=== PATIENT | female | born 1995 | race Caucasian/White ===

== ENCOUNTER 2017-10-24 06:00 | Inpatient (IN) ==
[2017-10-24] MEDS ORDERED: D5% in Lactated Ringers 1,000 ML IVC SCH (06:45)
[2017-10-24] MEDS ORDERED: Famotidine 20 MG/2 ML VIAL IVP PRN (06:45)
[2017-10-24] MEDS ORDERED: Metoclopramide 10 MG/2 ML VIAL IVP PRN (06:45)
[2017-10-24] MEDS ORDERED: miSOPROStol 25 MCG TABLET VG PRN (06:45)
[2017-10-24] MEDS ORDERED: Naloxone 0.4 MG/ML INJ IVP PRN (06:45)
[2017-10-24] MEDS ORDERED: *HR* Nalbuphine 10 MG/ML AMPUL IVP PRN (06:45)
[2017-10-24] MEDS ORDERED: Lidocaine 1% 20 ML MDV INFILT PRN (06:45)
[2017-10-24 07:05] LABS: Basophils % 0.3 %; Eosinophils # 0.2 K/mcL (0.0-0.6); Eosinophils % 1.8 %; Hemoglobin 14.2 g/dL (11.5-15.4); Immature Granulocytes % 0.3 % (0-4); Immature Platelets 6.9 % (1.1-6.1); Lymphocytes # 1.9 K/mcL (0.6-4.6); Lymphocytes % 15.5 %; Mean Corpuscular HGB Conc 33.8 g/dL (31.6-35.5); Mean Corpuscular Hemoglobin 30.5 pg (28.0-33.3); Mean Corpuscular Volume 90.1 fL (83.0-100.0); Monocytes # 0.7 K/mcL (0.0-1.3); Monocytes % 5.5 %; Neutrophils # 9.2 K/mcL (1.6-8.9); Platelet Count 228 K/mcL (140-400); Red Blood Count 4.66 M/mcL (3.82-4.97); Red Cell Distribution Width 13.6 % (11.5-14.5); Segmented Neutrophils % 76.6 %
[2017-10-24 07:19] LABS: Amphetamine Screen,Urine Negative ng/mL (Cutoff=1000); Barbiturate Screen,Urine Negative ng/mL (Cutoff=200); Benzodiazepines Screen,Urine Negative ng/mL (Cutoff=200); Cannabinoid Screen,Urine Negative ng/mL (Cutoff = 50); Cocaine Screen,Urine Negative ng/mL (Cutoff= 300); Opiate Screen,Urine Negative ng/mL (Cutoff=300); Phencyclidine Screen,Urine Negative ng/mL (Cutoff=25)
[2017-10-24] MEDS: Ringers Solution, Lactated 1,000 ML IVC SCH (07:58)
[2017-10-24] MEDS ORDERED: Oxytocin 20 units/ LR 1000 mL 20 UNIT/1,000 ML BAG IVC SCH (09:30)
--- NOTE | 2017-10-24 14:24 | OB/GYN History & Physical ---
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 History of Present Illness Chief complaint: elective IOL HPI: Ms. Dorsey is a 21 year old female with an estimated date of of 10/26/17 at 39 weeks 5 days gestation dated by LMP. She presents for scheduled induction of labor. She denies contractions, follow-up, vaginal bleeding and reports positive movement. course has been uncomplicated. She received care from Dr. Forbes. records are available in her chart and have been reviewed. Labs: O+ GBS- Hep B- HIV- T.Palladium- Rubella immune Varicella immune Past Med Surg Social Fam HX - Past Medical History Medical history: no medical history Psychiatric history: anxiety - Past Surgical History Surgical History: no surgical history - Social History Smoking Status: Never smoker Smokeless Tobacco Status: No Alcohol use: none Drug use: none - Family History Mother Adopted: No Family Member Ethnicity: Non- Living Status: Still Living Hx Family Cardiac Disorders: No Hx Family Respiratory Disorders: No Hx Family Cancer: No Hx Family GI Disorders: No Hx Family Genitourinary Disorders: No Hx Family Endocrine Disorder: No Hx Family Musculoskeletal Disorders: No Hx Family Neuromuscular Disorders: No Hx Family Neurologic Disorders: No Hx Family HEENT Disorders: No Hx Family Autoimmune Disorders: No Hx Family Reproductive Disorders: No Hx Family Psychosocial Disorders: No Hx Family Medical Disorders: No Obstetrical History - Pregnancies : 2 Para: 0 Term: 0 : 0 Ab's: 1 (2017 [facility]) Livin Medications and Allergies Buspirone HCl [Buspar] 5 mg PO PRN PRN 10/24/17 [History] Multivit with Iron-Minerals [Flintstones Complete] 1 tab PO DAILY 10/24/17 [ History] 3 Allergy/AdvReac Type Severity Reaction Status Date / Time No Known Allergies Allergy Verified 10/24/17 06:41 Review of System OB All systems PM: reviewed and no additional remarkable complaints except as stated Exam - Constitutional Constitutional: well developed, well nourished, no acute distress, average body habitus - HEENT HEENT: Normocephaly, Mucus Membranes Moist - Neck Neck exam: full ROM - Lungs Respiratory exam: CTAB - Cardiovascular Cardiovascular exam: RRR, +S1, +S2 - Breasts Breast: bilateral: normal - Abdomen Abdomen: Present: bowel sounds normal, gravid, non tender - Extremities Extremities exam: full ROM, normal inspection - Vulva Vulva: bilateral: normal - Vagina Vagina: Present: normal moisture - Cervix Dilation: 3 Effacement: 50 Station: -2 - Uterus Uterus exam: Present: normal size, normal contour - Anus/Rectum Anus/Rectum: Present: normal perianal skin Results Result Diagrams: 10/24/17 06:45 Abnormal lab results WBC 12.1 K/mcL (4.3-11.1) H 10/24/17 06:45 Neutrophils # 9.2 K/mcL (1.6-8.9) H 10/24/17 06:45 Immature Plt Fraction 6.9 % (1.1-6.1) H 10/24/17 06:45 All other labs normal. - VTE Reasons for not Prescribing Prophylaxis: Treatment not Indicated - Low risk for VTE
--- NOTE | 2017-10-24 19:27 | OB Labor Progress Note ---
Date of Encounter: 10/24/17 Time of Encounter: 17:24 Labor Progress Note - Subjective Subjective: Pt reports slight discomfort with contractions - Cervix Cervix: 3/50/-2 - Heart Tones Heart Tones: Baseline 120 Moderate variability Accelerations present 15x15 No decelerations FHR Category I - [place]: Contractions every 3 minutes - Interventions Interventions: Pitocin turned down to 6mu Cabrera bulb placed - Plan Plan: Continue expectant management Apply tension to cabrera bulb hourly Anticipate
--- NOTE | 2017-10-24 19:33 | OB Labor Progress Note ---
Date of Encounter: 10/24/17 Time of Encounter: 19:29 Labor Progress Note - Subjective Subjective: Pt uncomfortable - requesting epidural - Cervix Cervix: 6/50/-2 - Heart Tones Heart Tones: Baseline 120 Moderate variability Accelerations present 15x15 No decelerations FHR Category I - [place]: Contractions every 2-3 - Interventions Interventions: Crenshaw bulb out SVE Epidural - Plan Plan: Continue expectant management Patient may have epidural Anticipate
[2017-10-24] MEDS ORDERED: Epidural Premix (fent/bupiv) 110 ML EP SCH (19:45)
[2017-10-24] MEDS ORDERED: EPHEDrine 50 MG/ML VIAL ONE (20:17)
--- NOTE | 2017-10-24 20:22 | Anesthesia Evaluation PreOp ---
Date of Encounter: 10/24/17 Time of Encounter: 20:00 - Past History Planned Operation: bhupinder Cardiac History: Denies any Significant Hx Pulmonary History: Denies Any Significant HX BRIDGE ENGINEER History: Denies Any Significant HX Other Medical History: Denies Any Significant HX Anesthesia History: No Prior Anesthetic Complications : Yes Test: Positive Alcohol Use: none Drug use: none Medications and Allergies Buspirone HCl [Buspar] 5 mg PO PRN PRN 10/24/17 [History] Multivit with Iron-Minerals [Flintstones Complete] 1 tab PO DAILY 10/24/17 [ History] 3 Allergy/AdvReac Type Severity Reaction Status Date / Time No Known Allergies Allergy Verified 10/24/17 06:41 - Meds/Allergy Pre-op Review Medications Reviewed: Yes Allergies Reviewed: Yes Beta Blockers on Current Med List: No Anesthesia Results - Labs 10/24/17 06:45 Anesthesia Exam Height: 64 Weight: 200 NPO (# of Hours): mn Pain Scale: 3 - HEENT Pupil (Motor): Pupils equal Mallampati: II Teeth: Normal Oral Opening: Greater than 3 - BRIDGE ENGINEER LOC: Oriented BRIDGE ENGINEER Motor: Normal RUE, Normal LUE, Normal RLE, Normal LLE, Normal Face BRIDGE ENGINEER Sensory: Normal: RUE, LUE, RLE, LLE, Face - Cardiac Rhythm: Regular Murmur: None JVD: No Carotid Bruit: No - Pulmonary Breath Sounds: bilateral Clear Respiratory Effort: Symmetrical Anesthesia Assess/Plan ASA Score: 1 Modified [place] Scale for Level of Consciousness: Cooperative, oriented, and tranquil Anesthetic Plan: Regional Autologous Blood: No Monitoring Plan: Standard Monitors
--- NOTE | 2017-10-24 20:25 | Anesthesia Procedures ---
Date of Encounter: 10/24/17 Time of Encounter: 20:00
--- NOTE | 2017-10-24 21:02 | OB Labor Progress Note ---
Date of Encounter: 10/24/17 Time of Encounter: 20:59 Labor Progress Note - Subjective Subjective: Pt now comfortable with epidural. - Cervix Cervix: 6/70/-1 - Heart Tones Heart Tones: Baseline 140 Moderate variability Accelerations present 15x15 No decelerations FHR Category I - [place]: Contractions every 3+ minutes - Interventions Interventions: AROM - clear and small amount - Plan Plan: Continue expectant management Use peanut ball Anticipate
[2017-10-25] MEDS: Ringers Solution, Lactated 1,000 ML IVC SCH (01:23)
--- NOTE | 2017-10-25 01:27 | OB Labor Progress Note ---
Date of Encounter: 10/25/17 Time of Encounter: 01:25 Labor Progress Note - Subjective Subjective: Pt comfortable with epidural. - Cervix Cervix: 6-7/90/-1 - Heart Tones Heart Tones: Baseline 140 Moderate variability Accelerations present 15x15 Prolonged decel x 1 for 4 minutes FHR [place] II - [place]: Contractions every 2-4 minutes with IUPC - Interventions Interventions: SVE O2 applied via face mask Pitocin off Position changes FSE applied with patient consent - Plan Plan: Continue expectant management Dr. Donahue aware of prolonged deceleration and recovery Remove O2 as soon as FHR recovers Call anesthesia re: hypotension Anticipate Dr. Donahue aware of POC and agrees
[2017-10-25] MEDS ORDERED: *HR* Phenylephrine 10 MG/ML VIAL ONE (01:51)
[2017-10-25] MEDS ORDERED: Epidural Premix (fent/bupiv) 110 ML EP ONE ×2 (02:07→02:08)
[2017-10-25] MEDS ORDERED: Ondansetron 4 MG/2 ML VIAL ONE ×2 (02:13→04:38)
[2017-10-25] MEDS ORDERED: Ondansetron 4 MG/2 ML VIAL IVP PRN ×2 (02:13→05:43)
[2017-10-25] MEDS ORDERED: Lidocaine/EPI 1:200k 2% PF 20 ML VIAL ONE (03:47)
--- NOTE | 2017-10-25 03:49 | OB Labor Progress Note ---
Date of Encounter: 10/25/17 Time of Encounter: 03:47 Labor Progress Note - Subjective Subjective: Pt continues to be comfortable with epdiural. - Cervix Cervix: 6-7/100/-1 - Heart Tones Heart Tones: Baseline variable 120-150 Moderate variability Accelerations 15x15 Many prolonged decelerations and variable decelerations FHR Category II - [place]: Contractions every 2.5-3.5 minutes - Interventions Interventions: Interventions since 129: ephedrine for hypotension phenylephrine for hypotension LR bolus for hypotension Many position changes for FHR SVE Dr. Donahue notified of poor tracing coupled with seemingly intractable maternal hypotension. At bedside, decision was made to proceed with PLTCS. Pt agrees - Plan Plan: Stop induction Proceed to the OR for PLTCS Consents signed Pt and in agreement to proceed Dr. Donahue to assume full care.
[2017-10-25] MEDS ORDERED: *HR* FentaNYL (PF) 100 MCG/2 ML VIAL ONE (03:50)
[2017-10-25] MEDS ORDERED: CeFAZolin Premix DUPLEX 2,000 MG/50 ML BAG IVPB ONE (03:52)
[2017-10-25] MEDS ORDERED: Ringers Solution, Lactated 1,000 ML ONE (04:04)
[2017-10-25] MEDS ORDERED: Morphine Sulfate/PF 5mg/10mL Vial ONE (04:04)
[2017-10-25] MEDS ORDERED: *HR* Oxytocin 10 UNIT/ML VIAL IM ONE ×2 (04:05→04:58)
[2017-10-25] MEDS ORDERED: Ketorolac 30 MG/ML VIAL ONE (04:38)
[2017-10-25] MEDS ORDERED: Dexamethasone 4 MG/ML VIAL ONE (04:38)
--- NOTE | 2017-10-25 05:40 | OB/GYN Procedure Note ---
OB-CLINICAL INTERVIEWER: Procedure - Diagnosis Date of procedure: 10/25/17 Pre-op diagnosis: CAT 2 tracing, arrest of dilation Post-op diagnosis: same - Procedure Procedure: Primary Surgeon: Lexii Donahue Was there an assistant site manager present: Yes Messenger Floorperson: Petrona Madison Anesthesia Type: General Estimated blood loss (cc): 200 Fluids: crystalloid Procedure Complications: none Specimens collected: placenta Disposition: floor Findings: normal uterus, ovaries and tubes Narrative: Patient was brought to the operating room with satisfactory epidural anesthesia. The abdomen was prepped and draped in a sterile fashion. A Pfannenstiel incision was made and carried sharply down to the level of fascia. The fascia was incised transversely. The fascia was dissected away from the underlying rectus muscles. With sharp and blunt dissection, rectus muscles were divided in midline. The perineum was entered bluntly. The incision was carried vertically with scissors. Transverse incision was made across the bladder peritoneum. The bladder was dissected away from the underlying lower uterine segment. Bladder retractor was placed to protect the bladder. The lower uterine segment was entered sharply with a scalpel. Incision was manually extended. Clear amniotic fluid was encountered. The 's head was pulled up and delivered easily as were the shoulders and body. The mouth and oropharynx were suctioned. The cord was clamped and cut. The infant was passed off to the waiting nurse in satisfactory condition. APGARS 8/9. Placenta was extracted completely and found to be intact. Uterus was explored and found to be empty. Uterus was delivered through the abdominal incision and massaged vigorously. Intravenous Pitocin was administered. The margins of the uterine incision were closed primarily with a running locking stitch of 0 Vicryl with adequate hemostasis. Secondary running locking stitch was placed for extra strength to the wound. The uterus was returned to its proper anatomic position in the abdomen. The fascia was closed with a simple running stitch of 0 vicryl. The subcutaneous tisue was closed with 3-0 vicryl. The skin was closed with running subcuticular stitch of 4-0 vicryl. Uterus was expressed of its contents. Patient was brought to the recovery room in satisfactory condition.
[2017-10-25] MEDS ORDERED: Metoclopramide 10 MG/2 ML VIAL IVP PRN (05:43)
[2017-10-25] MEDS ORDERED: Simethicone 80 MG TAB.CHEW PO PRN (05:43)
[2017-10-25] MEDS ORDERED: Sennosides 8.6 MG TABLET PO PRN (05:43)
[2017-10-25] MEDS ORDERED: Oxytocin 20 units/ LR 1000 mL 20 UNIT/1,000 ML BAG IVC SCH (05:45)
[2017-10-25] MEDS ORDERED: Ringers Solution, Lactated 1,000 ML IVC SCH (05:45)
[2017-10-25] MEDS: Ibuprofen 600 MG TABLET PO PRN (21:22)
[2017-10-26] MEDS: *HR* OxyCODONE/APAP 5/325 TABLET PO PRN ×4 (00:09→22:53)
[2017-10-26 01:29] LABS: Basophils % 0.3 %; Eosinophils # 0.1 K/mcL (0.0-0.6); Eosinophils % 0.7 %; Hematocrit 33.2 % (35.3-44.9); Hemoglobin 10.8 g/dL (11.5-15.4); Immature Granulocytes % 0.3 % (0-4); Lymphocytes # 1.5 K/mcL (0.6-4.6); Lymphocytes % 12.1 %; Mean Corpuscular HGB Conc 32.5 g/dL (31.6-35.5); Mean Corpuscular Hemoglobin 29.9 pg (28.0-33.3); Mean Platelet Volume 11.1 fL (9.4-12.4); Monocytes # 0.7 K/mcL (0.0-1.3); Monocytes % 5.8 %; Neutrophils # 10.3 K/mcL (1.6-8.9); Platelet Count 144 K/mcL (140-400); Red Blood Count 3.61 M/mcL (3.82-4.97); Red Cell Distribution Width 14.2 % (11.5-14.5); Segmented Neutrophils % 80.8 %
[2017-10-26] MEDS: Ibuprofen 600 MG TABLET PO PRN ×3 (06:28→22:53)
--- NOTE | 2017-10-26 10:20 | OB/GYN Progress Note ---
Date of Encounter: 10/26/17 Time of Encounter: :18 - Assessment and Plan (1) Status post delivery Current Visit: Yes Status: Acute Pt meeting POD#1 milestones. Await flatus. Have pt ambulate in hallway today. Anticipate discharge home tomorrow. Subjective - Subjective Interval history: Pt reports she is not yet passing flatus. Patient reports: appetite normal, voiding normally, pain well controlled, ambulating normally : doing well Objective - Vital Signs Latest vital signs: Vital Signs Temp Pulse Pulse Resp BP Pulse Ox 10/26/17 07:36 98.0 F 98 12 103/64 97 10/26/17 06:17 97.9 F 100 16 99/66 98 10/26/17 00:30 100 10/26/17 00:12 98.5 F 100 16 99/65 95 10/25/17 21:28 96 10/25/17 21:08 99.1 F 96 16 99/64 97 10/25/17 16:22 98.5 F 102 14 96/56 96 10/25/17 10:45 98.4 F 78 16 116/77 94 Intake and Output 10/25/17 10/26/17 10/26/17 23:59 07:59 15:59 Intake Total 250 / 250 Output Total 2099 1150 / 1150 610 / 610 Balance -2100 / -2100 -900 / -900 -610 / -610 Intake: Oral 250 / 250 Output: Urine 610 / 610 Catheter 2099 1150 / 1150 Other: Weight 101.831 kg Patient Weight 10/26/17 23:59 Weight 101.831 kg - Exam Lungs: bilateral: normal Chest: Normal S1, Normal S2 Extremities: Present: edema (mild bilaterally) Abdomen: Present: soft Incision: Present: dressed (dressing dry and intact) Uterus: Present: firm Fundal Height: 0 (u/u) - Labs Labs: Laboratory Results - last 24 hr 10/26/17 01:17 WBC 12.7 H RBC 3.61 L Hgb 10.8 L D Hct 33.2 L MCV 92.0 MCH 29.9 MCHC 32.5 RDW 14.2 Plt Count 144 MPV 11.1 Immature Gran % 0.3 Seg Neutrophils % 80.8 Lymphocytes % 12.1 Monocytes % 5.8 Eosinophils % 0.7 Basophils % 0.3 Neutrophils # 10.3 H Lymphocytes # 1.5 Monocytes # 0.7 Eosinophils # 0.1 Basophils # 0.0
[2017-10-26] MEDS: Prenatal Vit/FA 1 EACH TABLET PO SCH (11:28)
[2017-10-27] MEDS: *HR* OxyCODONE/APAP 5/325 TABLET PO PRN (05:56)
[2017-10-27] MEDS: Ibuprofen 600 MG TABLET PO PRN (05:56)
[2017-10-27] MEDS: Prenatal Vit/FA 1 EACH TABLET PO SCH (07:31)
[2017-10-27 07:44] VITALS: BP 108/75
--- NOTE | 2017-10-27 08:43 | Discharge Summary ---
Date of Encounter: 10/27/17 Time of Encounter: 08:40 - Discharge Diagnosis (1) Status post delivery Priority: Primary Status: Acute Comments: Pt meeting all PP milestones, tolerates regular diet, passing flatus, bottle feeding. desires discharge. - Discharge Medications Prescriptions: OxyCODONE/APAP 5/325 [Percocet 5/325 MG] 1 each PO Q4HR PRN 5 Days #20 tablet PRN Reason: Moderate pain 4-6 Ibuprofen [Motrin] 600 mg PO Q6HR PRN #60 tablet PRN Reason: Cramping Docusate [Colace] 100 mg PO BID #60 capsule Home Medications: Buspirone HCl [Buspar] 5 mg PO PRN PRN 10/24/17 [History] Multivit with Iron-Minerals [Flintstones Complete] 1 tab PO DAILY 10/24/17 [ History] Docusate [Colace] 100 mg PO BID #60 capsule 10/27/17 [Rx] Ibuprofen [Motrin] 600 mg PO Q6HR PRN #60 tablet 10/27/17 [Rx] OxyCODONE/APAP 5/325 [Percocet 5/325 MG] 1 each PO Q4HR PRN 5 Days #20 tablet [Rx] Vit/FA 1 each PO DAILY tablet 10/27/17 [Rx] Allergies/Adverse Reactions: 3 Allergy/AdvReac Type Severity Reaction Status Date / Time No Known Allergies Allergy Verified 10/24/17 06:41 Data Procedures and tests throughout hospitalization: Laboratory Tests 10/24/17 10/24/17 10/26/17 06:45 06:45 01:17 WBC 12.1 H 12.7 H RBC 4.66 3.61 L Hgb 14.2 10.8 L D Hct 42.0 33.2 L MCV 90.1 92.0 MCH 30.5 29.9 MCHC 33.8 32.5 RDW 13.6 14.2 Plt Count 228 144 MPV 12.0 11.1 Immature Gran % 0.3 0.3 Seg Neutrophils % 76.6 80.8 Lymphocytes % 15.5 12.1 Monocytes % 5.5 5.8 Eosinophils % 1.8 0.7 Basophils % 0.3 0.3 Neutrophils # 9.2 H 10.3 H Lymphocytes # 1.9 1.5 Monocytes # 0.7 0.7 Eosinophils # 0.2 0.1 Basophils # 0.0 0.0 Immature Plt Fraction 6.9 H Urine Opiates Screen Negative Ur Barbiturates Screen Negative Ur Phencyclidine Scrn Negative Ur Amphetamines Screen Negative U Benzodiazepines Scrn Negative Urine Cocaine Screen Negative U Marijuana (THC) Screen Negative Date of admission: 10/24/17 06:16 Primary care physician: Francesca Harrison Discharging clinician: Page Hawley Anticipated date of discharge: 10/27/17 - Patient Status Disposition: Home, Self-Care Condition: Good Functional capacity at discharge: independent ambulation Overall status at discharge: patient is back to baseline - Discharge Instructions Follow Up With: Francesca Harrison, PRODUCTION PLANNER [Primary Care Provider] - - Diet and Activity Activity: resume usual activities as tolerated Diet: regular diet Hospital Course Reason for admission: IUP at term Delivery: section Episiotomy: none Laceration: none Other procedures: none complications: none Discharge diagnosis: IUP at term delivered baby: male Hospital course: male delivered @ 0431, APGARs 8/9, wt-7lbs 13oz, nuchal cord x 1 Original Note: OB-SUPERVISOR PLASTICS: Procedure - Diagnosis Date of procedure: 10/25/17 Pre-op diagnosis: CAT 2 tracing, arrest of dilation Post-op diagnosis: same - Procedure Procedure: Primary Surgeon: Lexii Donahue Was there an fast food sales assistant present: Yes Rehabilitation Team Lead: Petrona Madison Anesthesia Type: General Estimated blood loss (cc): 200 Fluids: crystalloid Procedure Complications: none Specimens collected: placenta Disposition: floor Findings: normal uterus, ovaries and tubes Appropriate for discharge OAARS reviewed. Time Attestation: Total time spent providing and/or coordinating discharge services: Time Spent: Less than 30 minutes - VTE Reasons for not Prescribing Prophylaxis: Treatment not Indicated - Low risk for VTE Documentation of Mechanical Device: Intermittent pneumatic compression device Exam - Constitutional Vitals: Temp Pulse Resp BP Pulse Ox 98.5 F 92 12 108/75 95 10/27/17 07:43 10/27/17 07:43 10/27/17 07:43 10/27/17 07:43 10/27/17 07:43 General appearance IM: A&O X 3 - Respiratory Respiratory exam: Present: CTAB - Cardiovascular Cardiovascular exam IM: Present: RRR - GI/Abdominal GI/Abdominal exam IM: normal bowel sounds, soft Incision: normal, intact (steri stirps in place ) - Uterine Tone: Firm Uterus Position: At Umbilicus - Extremities Exam Extremities exam IM: Present: normal capillary refill, normal inspection - Neurological Exam Neurological exam: normal gait, oriented X3 - Psychiatric Additional comments: Reports good mood.
== END 2017-10-27 11:30 | disposition home or self-care (01) | DRG 765 ==
LOC: 1NENULAB 06:16 → 1NENUOBS 10-25 07:16
PROVIDERS: ADMIT Advanced Practice Midwife; ATTEND Advanced Practice Midwife